=== PATIENT | female | born 2000 | race African-American/Black ===

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

== ENCOUNTER 2020-12-01 11:40 | Emergency (ER) | payer SELFPAY ==
[2020-12-01 11:47] VITALS: BP 110/65; PULSE 82; RESP 16; TEMP 36.9; O2SAT 100
--- NOTE | 2020-12-01 11:53 | ED.NAVMDI ---
HPI - Nausea/Vomiting/Diarrhea General Chief complaint: Dizziness Stated complaint: LIGHTHEADED/DIZZY S/P TAKING MEDICATION Source: patient Mode of arrival: ambulatory Limitations: no limitations History of Present Illness HPI Narrative: Patient is a 20-year-old female who presents complaining of lightheadedness, shortness of breath and nausea and vomiting x3 yesterday. Patient reports dizziness/lightheadedness and shortness of breath resolved at this time. Patient reports that she is unable to have support her prescription for Adderall, however, she bought Addall XR online in substitution and took instead. Patient reports taking 2 tablets (750mg each yesterday) with symptom onset within an hour. Patient reports she has been unable to stay well-hydrated because of the nausea and vomiting. Patient denies any other medical history. Patient denies taking any other [id number] medications prior to arrival. MD elicited complaint: nausea and vomiting Related Data Allergies Allergy/AdvReac Type Severity Reaction Status Date / Time cephalexin Allergy Hives Verified 12/01/20 11:53 Review of Systems Review of Systems: CONSTITUTIONAL: Denies fever, chills, or sweats. EYES: Denies visual changes, redness, or discharge. ENT: Denies rhinorrhea, congestion, sore throat, or otalgia. CARDIOVASCULAR: denies chest pain, palpitations, or edema. RESPIRATORY: Denies cough or dyspnea. GASTROINTESTINAL: Reports nausea and vomiting GENITOURINARY: Denies dysuria or hematuria. SKIN: Denies rash or itching. MUSCULOSKELETAL: Denies back pain, joint pain, or myalgia. NEUROLOGIC: Denies headache, numbness, or weakness. Reports lightheadedness. PSYCHIATRIC: Denies anxiety or depression. [facility] Past Medical History Medical History (Updated 12/01/20 @ 13:27 by DANIELLA Osullivan) ADHD Anemia Social History Social History (Updated 12/01/20 @ 11:57 by DANIELLA Osullivan) Smoking status: Never smoker Alcohol intake: never Substance use: never Living arrangements: with family Occupation/Education: occupation Gender identity (if verbalized by the patient): Female Comments At the time of signature, I have reviewed and agree with nursing past medical, surgical, social, and family history unless otherwise noted. Please see nursing chart for further information. There is no relevant family history pertinent to the presenting complaint. Exam Narrative: GENERAL: Well-appearing, well-nourished, and in no acute distress. HEAD: Normocephalic, atraumatic. EYES: EOMI. No redness or drainage. Conjunctiva are normal. ENT: Mucous membranes pink and moist. NECK: AROM. Supple. No lymphadenopathy. CHEST: No respiratory distress. Lungs clear to auscultation. HEART: Regular rate and rhythm. EXTREMITIES: Normal range of motion. No edema. SKIN: Warm, dry, no rash. NEURO: No focal deficits. Alert and oriented x3. Gait steady. PSYCH: Normal affect. No signs of depression or anxiety. Course Vital Signs Vital signs: Vital Signs Temperature 36.9 C 12/01/20 11:47 Pulse Rate 82 12/01/20 11:47 Respiratory Rate 16 12/01/20 11:47 Blood Pressure 110/65 12/01/20 11:47 Pulse Oximetry 100 12/01/20 11:47 Temperature 36.9 C 12/01/20 11:47 Pulse Rate 82 12/01/20 11:47 Respiratory Rate 16 12/01/20 11:47 Blood Pressure 110/65 12/01/20 11:47 Pulse Oximetry 100 12/01/20 11:47 Reviewed MDM - Nausea/Vomiting/Diarrhea MDM Narrative Medical decision making narrative: Patient most likely had medication reaction to Addal XR that she bought online. Patient hydrated with IV fluids, Zofran and Benadryl given. Patient reports that she is feeling much better at this time and requesting discharge. Discussed with patient not to buy online supplements without discussing first with her PCP. Patient is stable for discharge to home with outpatient follow-up as discussed. Patient is aware of red flags and reasons that she would n
--- NOTE | 2020-12-01 12:01 | ECG_ITS ---
Measurements Intervals [place] Rate: 77 P: 66 MI: 178 QRS: 67 QRSD: 85 T: 19 QT: 383 QTc: 436 Interpretive Statements SINUS RHYTHM WITH SINUS ARRHYTHMIA BORDERLINE ST-T WAVE ABNORMALITY- INF/LAT LEADS BORDERLINE ECG Electronically Signed On 12-02-2020 14:07:04 CDT by Hang Hines D.O.
--- NOTE | 2020-12-01 12:44 | PC.NURSE ---
IV site initiated in L AC, site clean/dry/intact. No infiltrate. IV bag hung without complication. Unable to document
--- NOTE | 2020-12-01 13:12 | PC.NURSE ---
pt reports nausea has resolved and dizziness has improved. Has ~ 300 ml of fluids remaining.
--- NOTE | 2020-12-01 13:51 | PC.NURSE ---
IV site discontinued. IV intact, no infiltrate noted.
== END 2020-12-01 13:53 | disposition home or self-care (01) ==
PROVIDERS: Emergency Provider Nurse Practitioner
DX: R42 Dizziness and giddiness (principal); R11.2 Nausea with vomiting, unspecified; T43.625A Adverse effect of amphetamines, initial encounter; F90.9 Attention-deficit hyperactivity disorder, unspecified type
CPT/HCPCS: 93005; 96360; 99213; G0463

== ENCOUNTER 2022-01-04 12:40 | Emergency (ER) | payer SELFPAY ==
--- NOTE | 2022-01-04 12:50 | ED.URI ---
HPI - URI/Sore Throat General Chief Complaint: Upper Respiratory Infection Stated Complaint: sore throat Time Seen by Provider: 01/04/22 13:09 Source: patient and RN notes reviewed Mode of arrival: ambulatory Limitations: no limitations History of Present Illness HPI Narrative: 21-year-old female presents with concern for sore throat, body aches, feeling feverish and fatigued, headaches. She denies nasal congestion, rhinorrhea, nausea, vomiting, diarrhea. She denies taking any medications for her symptoms. MD elicited complaint: sore throat Related Data Allergies Allergy/AdvReac Type Severity Reaction Status Date / Time cephalexin Allergy Hives Verified 12/01/20 11:53 Review of Systems Review of Systems: CONSTITUTIONAL: Reports malaise, fatigue, fever. EYES: Denies visual changes, redness, or discharge. ENT: Denies rhinorrhea, congestion, sinus pain, otalgia. Reports sore throat. CARDIOVASCULAR: Denies chest pain, palpitations, or edema. RESPIRATORY: Denies cough. Denies dyspnea. GASTROINTESTINAL: Denies abdominal pain, nausea, vomiting, diarrhea SKIN: Denies rash or itching. MUSCULOSKELETAL: Reports myalgia. NEUROLOGIC: Reports headache. All systems reviewed & are unremarkable except as noted in HPI and below PMFSH Past Medical History Medical History (Updated 01/04/22 @ 13:16 by Lani Perez NP) ADHD Anemia Social History Social History (Updated 12/01/20 @ 11:57 by Greer Israel, SCIENCE EDUCATION PROFESSOR) Smoking status: Never smoker Alcohol intake: never Substance use: never Gender identity (if verbalized by the patient): Female Comments At time of signature, agree with nursing past medical, surgical, social and family history. There is no relevant family history pertinent to the presenting complaint Exam Narrative: GENERAL: Well-appearing, well-nourished, and in no acute distress. HEAD: Normocephalic EYES: PERRLA, conjunctivae clear ENT: Nares clear. Mucous membranes moist. TM pearly mayen with sharp light reflex bilaterally; no tragal tenderness. Oropharynx erythematous without lesions. Tonsils enlarged with exudate, no drooling, no hoarseness, no trismus, uvula midline. NECK: Supple. No lymphadenopathy CHEST: Clear to auscultation, breath sounds equal. No wheezing, rhonchi, rales, or stridor. No respiratory distress, speaks in full sentences. HEART: Regular rate and rhythm. No murmur heard. SKIN: Warm, dry, no rash. NEURO: Alert and oriented x3. PSYCH: Normal mood and affect Course Course Emergency Course: Advised patient to call clinic on Friday afternoon the final results of her strep culture to determine if she needs to continue her antibiotics. Patient is aware of diagnosis, understands and agrees to treatment plan. Anticipatory guidance given. Patient agrees to follow-up as directed and is aware of reasons to seek care at the emergency department. Portions of this record may have been created with voice recognition software Level of Care: Express Care Visit Vital Signs Vital signs: Reviewed. MDM - URI/Sore Throat MDM Narrative Medical decision making narrative: Differential diagnosis considered: Scott virus, strep pharyngitis, allergic rhinitis, upper respiratory tract infection, sinusitis, rhinosinusitis, nasopharyngitis. viral pharyngitis, otitis media, otitis externa, pneumonia, bronchitis, viral cough syndrome, viral syndrome, and influenza. Exam findings show no acute concerns or changes; patient is non-toxic appearing and is in no distress. Patient is appropriate for outpatient treatment and follow-up. Lab Data Attestation: I reviewed the patient's lab results. Critical Care Time Critical Care Time Critical Care Time: No Discharge Plan Discharge Clinical Impression: Acute tonsillitis Patient Disposition: Home, Self-Care Condition: Stable Instructions: Antibiotic Form, Tonsillitis (ED) Additional Instructions: -Take the medication as prescribed. Throw away the tooth
[2022-01-04 13:06] VITALS: BP 98/67; PULSE 80; RESP 16; TEMP 36.8; O2SAT 100
== END 2022-01-04 13:25 | disposition home or self-care (01) ==
PROVIDERS: Emergency Provider Nurse Practitioner
DX: J03.90 Acute tonsillitis, unspecified (principal)
CPT/HCPCS: 87081; 87880; 99213; G0463